=== PATIENT | female | born 1960 | race American Indian/Alaskan Native ===

== ENCOUNTER 2020-01-17 07:31 | Emergency (ER) | payer OTHER ==
--- NOTE | 2020-01-17 08:44 | Emergency Department Report ---
{null, ED Recheck HPI - General Chief Complaint: Medical Clearance Stated Complaint: MEDICATION REFILL Time Seen by Provider: 01/17/20 08:11 Source: patient Mode of arrival: Ambulatory Limitations: No Limitations - History of Present Illness Initial Comments: This is a 59-year-old -[place] female who presents to the emergency room for medication refills. Patient states her primary care doctor is [facility] and she cannot afford to make scheduled appointment with primary care doctor. Past medical history of diabetes type 2 and hypertension. Patient states she have 1 dose left of her Levemir in a few of her blood pressure medication. She denies new symptoms. Complaint: medication refill request Initial Visit For: other (Medication refill) Returns Today for: request for prescription Symptoms Since Prior Visit: no new symptoms Context: ran out of medication Associated Symptoms: none - Related Data Previous Rx's Medication Instructions Recorded Last Taken Type Insulin Detemir [Levemir VIAL] 20 unit SQ QHS #1 vial 01/17/20 Unknown Rx Metformin HCl [metFORMIN] 1,000 mg PO BID #60 tablet 01/17/20 Unknown Rx amLODIPine 10 mg PO DAILY #30 tab 01/17/20 Unknown Rx Allergies Allergy/AdvReac Type Severity Reaction Status Date / Time No Known Allergies Allergy Unverified 01/17/20 07:35 ED Review of Systems ROS: Stated complaint: MEDICATION REFILL Other details as noted in HPI Constitutional: denies: chills, fever Respiratory: denies: cough, shortness of breath, wheezing Cardiovascular: denies: chest pain, palpitations Endocrine: no symptoms reported Gastrointestinal: denies: abdominal pain, nausea, diarrhea Genitourinary: denies: urgency, dysuria, discharge Musculoskeletal: denies: back pain, joint swelling, arthralgia Skin: denies: rash, lesions Neurological: denies: headache, weakness, paresthesias Psychiatric: denies: anxiety, depression ED Past Medical Hx - Past Medical History Previous Medical History?: Yes Hx Hypertension: Yes Hx Diabetes: Yes - Surgical History Past Surgical History?: No - Social History Smoking Status: Current Every Day Smoker - Medications Home Medications: Home Medications Medication Instructions Recorded Confirmed Last Taken Type Insulin Detemir [Levemir VIAL] 20 unit SQ QHS #1 vial 01/17/20 Unknown Rx Metformin HCl [metFORMIN] 1,000 mg PO BID #60 tablet 01/17/20 Unknown Rx amLODIPine 10 mg PO DAILY #30 tab 01/17/20 Unknown Rx ED Physical Exam - General Limitations: No Limitations General appearance: alert, in no apparent distress, obese - Respiratory Respiratory exam: Present: normal lung sounds bilaterally. Absent: respiratory distress - Cardiovascular Cardiovascular Exam: Present: regular rate, normal rhythm. Absent: systolic murmur, diastolic murmur, rubs, gallop - GI/Abdominal GI/Abdominal exam: Present: soft, normal bowel sounds. Absent: distended, tenderness, guarding, rebound, rigid - Extremities Exam Extremities exam: Present: normal inspection - Neurological Exam Neurological exam: Present: alert, oriented X3, normal gait - Psychiatric Psychiatric exam: Present: normal affect, normal mood - Skin Skin exam: Present: warm, dry, intact, normal color. Absent: rash ED Recheck MDM - Differential Diagnosis Prescription Refill(s) - Medical Decision Making This is a 59-year-old female who presents to the emergency room for medication refills. Past medical history of hypertension and diabetes type 2. Vitals are stable and patient in no acute distress. Patient denies new symptoms. Refilled amlodipine 10 mg p.o. daily, metformin 1000 mg p.o. twice daily, and Levemir 20 units subcutaneous nightly. Patient instructed to follow-up with her PCP at [facility] for continued refills. Patient discharged home stable. Critical care attestation.: If time is entered above; I have spent that time in minutes in the direct care of this critically ill patient, excluding procedure time. ED Disposition Clinical Impression: Medication refill Disposition: DC-01 TO HOME OR SELFCARE Is pt being admited?: No Condition: Stable Instructions: DASH Eating Plan (ED), Hypertension (ED), Diabetes Mellitus Type 2 in Adults (ED) Additional Instructions: Follow up with your primary care doctor at [facility] as discussed. Prescriptions: Insulin Detemir [Levemir VIAL] 20 unit SQ QHS #1 vial amLODIPine 10 mg PO DAILY #30 tab Metformin HCl [metFORMIN] 1,000 mg PO BID #60 tablet Referrals: RAMIN BENITEZ MD [Staff Physician] - 3-5 Days RENITA BELL MD [Staff Physician] - 3-5 Days [facility] [Provider Group] - 3-5 Days Forms: Work/School Release Form(ED) Time of Disposition: 08:43 }
[2020-01-17 08:59] VITALS: BP 189/104
== END 2020-01-17 09:03 | disposition home or self-care (01) ==
LOC: ED 07:31
DX: I10 Essential (primary) hypertension (principal); E11.9 Type 2 diabetes mellitus without complications; F17.200 Nicotine dependence, unspecified, uncomplicated; Z79.899 Other long term (current) drug therapy; Z76.0 Encounter for issue of repeat prescription
CPT/HCPCS: 82962